=== PATIENT | male | born 1980 | race Caucasian/White ===

== ENCOUNTER 2022-08-27 07:37 | Outpatient (CLI) | payer BC, SELFPAY ==
--- OUTSIDE RECORDS SUMMARY | 2022-08-27 07:39 | XMS_ITS | Clinical Summary ---
:1980 Author Organization [email or web address] [facility] [place] [address] Care Team Providers Name Role Phone Amilcar Marquez MD Primary Care Provider Allergies No known active allergies Medications Medication Sig Dispensed Refills Start Date End Date Status ASPIRIN ORAL Take 81 mg by 0 Act domonique mouth once daily. valACYclovir (VALTREX) Take 1 tablet by 0 03/11/2020 Active 500 mg tablet mouth once daily. rizatriptan (MAXALT) Take 1 tablet by 0 03/11/2020 Active 10 mg tablet mouth 2 times daily if needed for Migraine. Give at minimum 2hrs apart. Max Dose: 30mg per 24hrs. EMGALITY PEN 120 mg/mL every 4 weeks. 0 02/29/2020 Active pnij amitriptyline (ELAVIL) Take 75 mg by 0 02/17/2021 Active 75 mg tablet mouth at bedtime. amoxicillin (AMOXIL) Take 4 Capsules 4 Capsule 3 04/04/2021 Active 500 mg (2,000 mg) by capsuleIndications: mouth one time H/O mitral valve if needed for repair Other (Specify) for up to 1 dose. carvediloL (Coreg) Take 1 Tablet 180 tablet. 0 06/07/2022 Active 3.125 mg (3.125 mg) by tabletIndications: mouth in the Mild left ventricular morning and 1 systolic dysfunction Tablet (3.125 mg) in the evening. Take with meals. 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 H/O mitral valve repair 08/14/2012 Encounters Date Type Specialty Care Team Description 06/06/2022 Refill Nils Tyler, Ref ill Request (Carvedilol 3.125mg tablets ) from Last 3 Months Social History Tobacco Use Types Packs/Day Years Used Date Never Smoker Smokeless Tobacco: Never Used Alcohol Use Standard Drinks/Week Comments Not Currently 0 (1 standard drink = 0.6 oz pure alcoho l) Sex Assigned at Date Recorded Not on file Obstetrics History Last Filed Vital Signs Vital Sign Reading Time Taken Comments Blood Pressure 112/74 04/04/2021 1:54 PM CDT Pulse 84 04/04/2021 1:54 PM CDT Temperature - - Respiratory Rate - - Oxygen Saturation 95% 04/04/2021 1:54 PM CDT Inhaled Oxygen Concentration - - Weight 98.5 kg (217 lb 3.2 oz) 04/04/2021 1:54 PM CDT Height 182.9 cm (6') 04/04/2021 1:54 PM CDT Body Mass Index 29.46 04/04/2021 1:54 PM CDT Plan of Treatment Health Maintenance Due Date Last Done Comments COVID-19 vaccine series (#1) 02/25/1980 Tdap 1990 Depression screening for age 12+ 1991 Hepatitis C screening for age 18-79 1997 Tetanus booster 1999 Lipids for age 35-44 2014 BMI (ht and wt on same day) for age 18+ 04/04/2022 04/04/20 21 Influenza for age 9-49 08/02/2022 Results Not on filefrom Last 3 Months Insurance Payer Benefit Plan / Subscriber ID Effective Dates Phone Addre ss Type Group BLUE [employer]OSS BLUE CR[employer] OF [id number] 2016-Present [address] [place] [address] BL[employer]OSS BL[employer] OF [id number] 2016-Present [address] [place] [address] Care Teams Md Allergy Immunology Relationship Specialty Start Date End Date Amilcar Marquez MD PCP - General Family Practice 05/16/171999 [place] [phone]
[2022-08-27 09:51] LABS: Albumin* 4.5 g/dL (3.3-5.0)
[2022-08-27 09:52] LABS: Chloride* 103 mmol/L (96-114); Potassium* 4.3 mmol/L (3.6-5.1); Sodium* 138 mmol/L (135-149)
[2022-08-27 09:54] LABS: Alkaline Phosphatase* 71 U/L (40-150); Aspartate Amino Transferase* 33 U/L (12-35); Bilirubin Total* 0.7 mg/dL (0.1-1.5); Blood Urea Nitrogen* 18 mg/dL (5-24); Carbon Dioxide* 27 mmol/L (20-32); Cholesterol* 227 mg/dL (90-199); Creatinine* 1.3 mg/dL (0.5-1.5); Estimated Glomerular Filt Rate 70 ml/min
[2022-08-27 09:55] LABS: Alanine Aminotransferase* 31 U/L (4-50); Calcium* 9.3 mg/dL (8.4-10.6); Glucose* 106 mg/dL (60-115); HDL Cholesterol* 45 mg/dL (>=40); LDL Cholesterol Calculated 154 mg/dL (<100); Triglycerides* 141 mg/dL (40-149)
== END 2022-08-27 07:38 | disposition home or self-care (01) ==
PROVIDERS: PCP Family Medicine; Visit Provider Family Medicine
DX: Z00.00 Encounter for general adult medical examination without abnormal findings (principal); E78.5 Hyperlipidemia, unspecified
CPT/HCPCS: 80053; 80061

== ENCOUNTER 2023-09-27 07:32 | Outpatient (CLI) | payer BC, SELFPAY | END 2023-09-27 07:33 | disposition home or self-care (01) | LOC: NFLDREF 09-28 03:13 | PROVIDERS: PCP Family Medicine; Referring Provider Family Medicine; Visit Provider Family Medicine | DX: Z00.00 Encounter for general adult medical examination without abnormal findings (principal); E78.5 Hyperlipidemia, unspecified; G43.909 Migraine, unspecified, not intractable, without status migrainosus | CPT/HCPCS: 80053; 80061 ==

== ENCOUNTER 2024-10-23 07:30 | Outpatient (RCR) | payer BC, SELFPAY ==
--- NOTE | 2024-10-23 07:59 | PT.OPDNX ---
PT [facility] Daily Note PT [facility] Daily Note Start: 09/23/24 07:17 Freq: Status: Active Protocol: Document 10/23/24 07:21 HLA (Rec: 10/23/24 07:58 HLA [id number]) E-signed By Deborah Galvin, PT, DPT PT OP Daily Progress Note Visit Information Note Type Daily Note,Discharge Note Visit Number 5 Insurance Information Recert Due Date 12/21/24 Insurance Name [employer] Medical Diagnosis R knee patellofemoral pain syndrome Treating Diagnosis R knee pain, R knee weakness Referring MD Mejia Subjective Preferred Name Scot Subjective Doing well with ex, some still hard, but not painful. Walking distances needed around campus, 26 min, uneven surfaces ok now, no pain on incline/decline. Pain Comments Pain vastus medialis 1/10 with twist, no pain at rest, sleeping now. Takes Tylenol prn Date of Last Physician Visit 09/01/24 Precautions Weight Bearing Status Weight Bear as Tolerated Home Exercise Home Exercise Comments Access Code: [email or web address] URL: [email or web address] Date: 09/30/2024 Prepared by: Deborah Galvin Exercises - Supine Quadricep Sets - 2 x daily - 7 x weekly - 3 sets - 10 reps - 5 hold - Supine Heel Slide - 1 x daily - 7 x weekly - 3 sets - 10 reps - 5 hold - Small Range Straight Leg Raise - 2 x daily - 7 x weekly - 2-3 sets - 10 reps - 5 hold - Supine Short Arc Quad - 2 x daily - 7 x weekly - 3 sets - 10 reps - 5 hold - Hip Flexor Stretch at Edge of Bed - 2 x daily - 7 x weekly - 1 sets - 3 reps - 30- 60 hold -hooklying hip add stretch 30 sec x2 - Clamshell - 2 x daily - 7 x weekly - 3 sets - 10 reps - 5 hold - Seated Long Arc Quad - 2 x daily - 7 x weekly - 3 sets - 10 reps - 5 hold - Seated March - 2 x daily - 7 x weekly - 3 sets - 10 reps - 5 hold - Supine Hamstring Stretch with Doorway - 1 x daily - 7 x weekly - 1 sets - 2 reps - 2 min hold - Wall Quarter Squat - 1 x daily - 7 x weekly - 1-2 sets - 10 reps - 5-10 hold - Sit to Stand with Arms Crossed - 1 x daily - 7 x weekly - 1 sets - 5-10 reps - Standing Hip Abduction AROM - 1 x daily - 7 x weekly - 3 sets - 10 reps - 3-5 hold - Standing Hip Abduction with Bent Knee - 1 x daily - 7 x weekly - 3 sets - 10 reps - 3- 5 hold Objective Other/Pertinent Objective Patellar compression negative Patellar grind negative Nichole's negative Patient Instructed in Risks/Benefits Yes Therapeutic Exercise Therapeutic Exercise Minutes (minutes) 40 Therapeutic Exercise: To Restore Kinesiotape replaced for R Functional Status knee vastus alignment recumbent bike level 3 x 12 min, instructed pt in advance of bike at home/office gym Access Code: Access Code: [email or web address] URL: [email or web address] Date: 09/30/2024 Prepared by: Deborah Galvin practiced and updated home program, pt performed all as below: reviewed ex, all ind now, pt to cont at home Exercises - Supine Quadricep Sets - 2 x daily - 7 x weekly - 3 sets - 10 reps - 5 hold-completed - Supine Heel Slide - 1 x daily - 7 x weekly - 3 sets - 10 reps - 5 hold-painfree, but if lifting leg pain R quad - Small Range Straight Leg Raise - 2 x daily - 7 x weekly - 2-3 sets - 10 reps - 5 hold-can lift 6 inches only - Supine Short Arc Quad - 2 x daily - 7 x weekly - 3 sets - 10 reps - 5 hold-painfree today - Hip Flexor Stretch at Edge of Bed - 2 x daily - 7 x weekly - 1 sets - 3 reps - 30- 60 hold able to get heel over bed now - Clamshell - 2 x daily - 7 x weekly - 3 sets - 10 reps - 5 hold-cues given to not roll posteriorly, mild c/o quad tightness - Seated Long Arc Quad - 2 x daily - 7 x weekly - 3 sets - 10 reps - 5 hold-vc to slow, hold, painfree today 30 total - Seated March - 2 x daily - 7 x weekly - 3 sets - 10 reps - 5 hold-able to lift and hold 3 sec now - Supine Hamstring Stretch with Doorway - 1 x daily - 7 x weekly - 1 sets - 2 reps - 2 min hold-still tight B HS, improving, no pain - Wall Quarter Squat - 1 x daily - 7 x weekly - 1-2 sets - 10 reps - 5-10 hold-able to hold 10 sec added 2nd set to be done with feet turned outward, start slow, increase if no pain - Sit to Stand with Arms Crossed - 1 x daily - 7 x weekly - 1 sets - 5-10 reps-10 reps, working on slowing descent. Pt reports 'tug' not pain R quad and vastus - Standing Hip Abduction AROM - 1 x daily - 7 x weekly - 3 sets - 10 reps - 3-5 hold- reminders to hold trunk in midline - Standing Hip Abduction with Bent Knee - 1 x daily - 7 x weekly - 3 sets - 10 reps - 3- 5 hold-more difficulty with balance, encouraged 1-2 UE support as needed Stationary bike level 4 x 5 min, no pain R knee Manual Therapy Techniques Manual Therapy Techniques kinesiotape to R knee last time PFPS Gait & Stair Training Gait & Stair Training Comments Gt level and uneven surfaces ind, no substitution or locking of knees. Denies tug or pain on reciprocal stairs. Neuromuscular Re-Ed Neuromuscular Reeducation Comments seated good static/dynamic standing good static/dynamic Treatment Minutes Timed Code Treatment Minutes 40 Total Treatment Time 40 Billing Units Therapeutic Exercise Units 3 Assessment/Impression Assessment/Impression 44 year old male male with onset of R patellofemoral pain was eval'd by PT 09/23/24. He had significant R knee pain, limited ROM, tightness of LE musculature and general weakness. Pt has performed ex for quad alignment, ROM, strengthening, closed chain and progressed to core and aerobic ex via walking and recumbent bike. Pt today with full, painfree R knee ROM, strength is WNL. Negative knee test signs. Encouraged increasing gt up to 26 min-met goal to be at 20 min painfree outdoors. Reviewed all ex, advancing fitness program at home. PT to dc today. Plan of Care Physical Therapy Goals Within 6-8 weeks 1. Pt will have 5/5 strength of LEs, pain free for ADLS, ambulation level surfaces and stairs. 2. Pt will be able to amb 20 min pain free for mobility in the community. 3. Pt will be independent in home ex program for strengthening, ROM and mobility to reduce fall risk 4. Pt will demonstrate 9 point increase in LEF scale ( functional gain). 5. Pt will perform stairs painfree, reciprocally. Daily Plan of Care Discharge Discharge Note Discharge Summary 44 year old male male with onset of R patellofemoral pain was eval'd by PT 09/23/24. He had significant R knee pain, limited ROM, tightness of LE musculature and general weakness. Pt has performed ex for quad alignment, ROM, strengthening, closed chain and progressed to core and aerobic ex via walking and recumbent bike. Pt today with full, painfree R knee ROM, strength is WNL. Negative knee test signs. Encouraged increasing gt up to 26 min-met goal to be at 20 min painfree outdoors. Reviewed all ex, advancing fitness program at home. PT to dc today. Date of First Visit for Therapy 09/23/24 Date of Last Visit for Therapy 10/23/24 Initial Primary Functional Limitations antalgic gt, locking knee, limited ROM, limited strength, stairs step to pattern Initial Pain Level severe R knee pain with flex, end range ext Pain Level at Discharge denies pain today Interventions Provided During Treatment Gait Training,Manual Therapy, Neuromuscular Re-Ed, Therapeutic Activities, Therapeutic Exercise Recommendations/Reason for Discharge Met All Therapy Goals Discharge Instructions cont with ex, advance amb and bike program
== END 2025-02-20 23:59 | disposition home or self-care (01) ==
PROVIDERS: PCP Family Medicine; Visit Provider Orthopaedic Surgery Sports Medicine
DX: M22.2X1 Patellofemoral disorders, right knee (principal); M25.561 Pain in right knee; R53.1 Weakness; Z51.89 Encounter for other specified aftercare
CPT/HCPCS: 97110; 97116; 97161

== ENCOUNTER 2024-11-30 07:30 | Outpatient (CLI) | payer BC, SELFPAY | END 2024-11-30 07:31 | disposition home or self-care (01) | LOC: NFLDREF 12-01 10:54 | PROVIDERS: PCP Family Medicine; Referring Provider Family Medicine; Visit Provider Family Medicine | DX: E78.5 Hyperlipidemia, unspecified (principal) | CPT/HCPCS: 80053; 80061 ==

== ENCOUNTER 2024-12-11 14:50 | Outpatient (CLI) | payer BC, SELFPAY ==
--- NOTE | 2024-12-11 15:30 | CRLHL7_ITS ---
For Patients: As a result of the Century Cures Act, medical imaging exams and procedure reports are released immediately into your electronic medical record. You may view this report before your referring provider. If you have questions, please contact your health care provider. CLINICAL INDICATION: Right knee pain. COMPARISON STUDIES: Radiographs 08/27/2024. TECHNICAL: Noncontrast MRI of the right knee. 1.5 jr MRI scanner. Axial, sagittal and coronal T1, PD, PD FS, stir and T2 FS images. FINDINGS: MEDIAL COMPARTMENT: Medial Meniscus: Intact. Articular Cartilage: Maintained. LATERAL COMPARTMENT: Lateral Meniscus: Intact. Articular Cartilage: Maintained. 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 The trochlear cartilage is maintained. LIGAMENTS: Anterior Cruciate Ligament: Intact. Posterior Cruciate Ligament: Intact. MEDIAL COLLATERAL LIGAMENT AND POSTEROMEDIAL CORNER COMPLEX: Medial Collateral Ligament: Mild chronic thickening of the proximal MCL. No acute MCL injury. Medial Head of the Gastrocnemius and Semimembranosus Tendons: Normal. LATERAL COLLATERAL LIGAMENT COMPLEX AND POSTEROLATERAL CORNER COMPLEX: Fibular Collateral Ligament: Normal. Distal Biceps Femoris Tendon Complex: Normal. Iliotibial Band: Normal. Popliteus Tendon: Normal. Posterolateral Corner Capsule: Normal. EXTENSOR MECHANISM: Distal Quadriceps Tendon: Normal. Patellar Tendon: Normal. Medial Patellar Retinaculum and Medial Patellofemoral Ligament: Normal. Lateral Patellar Retinaculum: Normal. Normal patellar alignment. Mild patella john. Normal trochlear depth. Normal lateral trochlear inclination. JOINT SPACE AND CAPSULE: Quantity of joint fluid within normal limits. No joint bodies. BONES AND SOFT TISSUES: No fracture, marrow edema or marrow replacement process. No significant popliteal cyst.No soft tissue mass. IMPRESSION: 1. 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 2. Mild patella john. 3. Chronic thickening of the proximal MCL suggesting sequelae of remote MCL sprain. 4. No meniscal tear. Dictated by Den Alex MD @ 12/14/2024 8:14:33 AM (Electronically Signed)
== END 2024-12-11 14:51 | disposition home or self-care (01) ==
LOC: MRI 14:51
PROVIDERS: PCP Family Medicine; Visit Provider Family Medicine
DX: M25.561 Pain in right knee (principal); M94.261 Chondromalacia, right knee; S83.411A Sprain of medial collateral ligament of right knee, initial encounter
CPT/HCPCS: 73721

== ENCOUNTER 2025-01-25 13:23 | Outpatient (CLI) | payer BC, SELFPAY | END 2025-01-25 13:24 | disposition home or self-care (01) | LOC: MRI 13:24 | PROVIDERS: PCP Family Medicine; Visit Provider Physician Assistant | DX: M25.551 Pain in right hip (principal); M16.11 Unilateral primary osteoarthritis, right hip; S73.191A Other sprain of right hip, initial encounter; M25.451 Effusion, right hip | CPT/HCPCS: 73721 ==

== ENCOUNTER 2025-03-22 06:21 | Day surgery (SDC) | payer BC, SELFPAY ==
[2025-03-22] VITALS (20 sets, daily range): BP systolic 97–135; BP diastolic 62–96; PULSE 60–84; RESP 12–18; TEMP 36.1–37.1; O2SAT 92–99; BMI 30.4
[2025-03-22] MEDS: LACTATED RINGERS 1000 ML 1,000 ML 100 ML IV (06:40)
[2025-03-22] MEDS: OXYCODONE (CR) 10 MG TAB.ER.12H PO (06:45)
[2025-03-22] MEDS: ACETAMINOPHEN 500 MG TABLET 1000 MG PO (06:45)
[2025-03-22] MEDS: SODIUM CHLORIDE 0.9 % (FLUSH) 10 ML SYRINGE IVF (06:50)
[2025-03-22] MEDS: fentaNYL 100 MCG/2 ML inj IVP (07:19)
[2025-03-22] MEDS: MIDAZOLAM HCL 1 MG/ML inj IVP (07:19)
--- NOTE | 2025-03-22 07:22 | SUR.PREOP ---
TIME?OUT:?0718 PT/RN/MDA?VERIFICATION?OF?SURGICAL?SITE,?PROCEDURE,?AND?CONSENT OBTAINED?PRIOR?TO?INVASIVE?PROCEDURE.
--- NOTE | 2025-03-22 07:45 | CRLHL7_ITS ---
For Patients: As a result of the Cures Act, medical imaging exams and procedure reports are released immediately into your electronic medical record. You may view this report before your referring provider. If you have questions, please contact your health care provider. Indication: Hip replacement surgery Technique: AP hip fluoroscopic image. Fluoroscopy time 56.9 seconds. Findings/Impression: Hardware from a right total hip arthroplasty is in satisfactory position. Dictated by Reginald Longoria MD @ 03/22/2025 1:48:50 PM (Electronically Signed)
--- NOTE | 2025-03-22 07:50 | W.PM.H&PU ---
History & Physical Update History & Physical Update H&P Reviewed and patient assessed: No changes noted
[2025-03-22] MEDS: CEFAZOLIN 2 GM in 0.9 % SODIUM CHLORIDE Mini-bag 100 ML IVPB (07:55)
[2025-03-22] MEDS: TRANEXAMIC ACID 100 MG/ML INJ 1000 MG IV (07:56)
--- NOTE | 2025-03-22 09:40 | P.ORPRC_ITS ---
Procedure Note Date of procedure: 03/22/25 Procedure: PREOPERATIVE DIAGNOSIS: 1. Right hip osteoarthritis, severe, primary POSTOPERATIVE DIAGNOSIS: 1. Right hip osteoarthritis, severe, primary PROCEDURE: 1. Right total hip arthroplasty-anterior approach 2. 14408 - intraoperative fluoroscopy up to 1 hour. SURGEON: Franklyn Mejia MD. TRAVELING BUYER: Prateek Perez PA-C; STACY Savage; Celestina Wellington (student) - Of note, a skilled [employer] assistant manager was critical for this case to aid in patient positioning, tissue retraction, limb manipulation/positioning, and closure. ANESTHESIA: General endotracheal anesthetic EBL: IMPLANTS: DePuy J&J uncemented total hip [place] cup size 58, hole eliminator, +4 neutral liner Actis stem, high offset, size 8 +5 mm ceramic 36 mm head COMPLICATIONS: None evident INDICATIONS: The patient is a pleasant 44-year-old male who has experienced severe right hip pain and difficulty bearing weight. 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 Given the deformity, the dysfunction, and the pain, as well as the failure of nonoperative management, recommendation was made for surgery. FINDINGS: Significant cartilage delamination consistent with avascular necrosis. Moderate effusion upon entering the joint. Generalized synovitis throughout the hip. DESCRIPTION OF PROCEDURE: Following a thorough discussion of risks, benefits, and alternatives consent was obtained and the right hip was marked. The patient was brought to the operating room and placed supine on the operating table. Induction of anesthesia was undertaken. 2 g IV Ancef and 1 g tranexamic acid was administered within 1 hr of incision preoperatively. Proper time-out was performed identifying proper patient, site, procedure. The operative extremity was prepped and draped in the appropriate sterile fashion using ChloraPrep after the patient was positioned on the [place] table with head in neutral alignment and all bony prominences well padded. C-arm fluoroscopic imaging was utilized to confirm proper pelvis rotation and position, and to get true AP films of both the contralateral left, and the affected right hip. This is for comparison. A longitudinal incision was made starting approximately 1 cm distal to the ASIS, and 3-4 cm lateral. The incision was extended distally aiming toward the lateral border the patella. Sharp incision through skin and bovie cautery through the subcutaneous tissue allowed identification of the TFL fascia. This was sharply divided, and the fascia bluntly released from the muscle fibers as we dissected medial. Upon coming to the medial border, we were able to retract the TFL laterally, and penetrated the deeper fascia and identify the crossing circumflex vessels. These were ligated/cauterized. The rectus was elevated from the capsule, and retractors placed laterally and me dially along the femoral neck to help with visualization of the capsule. We then performed an inverted T capsulotomy. The capsule was tagged for later repair. Retractors were placed inside the capsule. The femoral neck was visualized after releasing medially down to the lesser trochanter, along the saddle laterally, and up onto the acetabulum. The femoral neck cut was made in line with our preoperative templating. The head was removed in a single piece, and sized. We turned our attention to acetabular preparation. Initially, the labrum was resected from around the perimeter, the pulvinar was excised, allowing us to visualize the false wall. We started the reaming with a 43 mm reamer. This was medialized down to the true wall. We then enlarged our reamers sequentially up to one size less than the selected cup size. We trialed at the same size and found it to have an excellent fit. The selected cup was then opened, inserted, and impacted in line with the goal of 40? of abduction, and 20-25? of anteversion. This was confirmed on C-arm fluoroscopic imaging to be in the appropriate/goal position. Once the cup was placed we placed a hole eliminator and a liner consistent with preop planning. Attention was turned to the femoral preparation. The limb was extended, externally rotated, and adducted. The posteromedial capsule was released, as retractors were placed allowing excellent access to the proximal femur. Initially a final cigar and box examiner was followed by canal finder followed by various broaches. We broached sequentially up to the size noted above, found it to have excellent rotational control, and trialing various heads and necks, revealed that appropriate neck offset, and the above noted head size provided the greatest stability, and hoahaoism of length, and offset. C-arm fluoroscopic imaging confirmed position of the stem, as well as leg lengths, which were compared with the pre procedure all fluoroscopic images. Trial implants were removed, the real femoral stem inserted, as was the appropriate head. After reducing, the leg was placed through range of motion and stability was confirmed anterior, posterior, and lateral. A 3 min Betadine soak was then performed, and thorough irrigation with normal saline followed. Closure of the capsule was performed with #1 PDS. Bleeding was confirmed to be controlled at this stage, and the TFL fascia was closed with #0 strata fix. Subcutaneous, and subcuticular closure was performed with 2-0 Vicryl and 4-0 Monocryl, respectively. Dressings were applied, and the patient was awoken from anesthesia and transferred the PACU in stable condition. A skilled [employer] assistant manager was critical for this case to aid in patient positioning, tissue retraction, acetabular and proximal femoral exposure, limb manipulation/positioning, dislocation/relocation, patient safety, and closure. PLAN: 1. Weight bear as tolerated operative extremity. 2. 23 hr perioperative antibiotics. 3. Ice. 4. PT/OT consults for ambulation assistance/mobility education. 5. Social work consult for discharge planning. 6. DVT prophylaxis with at SCDs and Xarelto x5 days followed by aspirin for a total of 1 month..
--- NOTE | 2025-03-22 10:09 | CRLHL7_ITS ---
For Patients: As a result of the Cures Act, medical imaging exams and procedure reports are released immediately into your electronic medical record. You may view this report before your referring provider. If you have questions, please contact your health care provider. Indication: Postop Technique: AP hip centered pelvis and lateral view right hip Findings/Impression: Hardware from a right total hip arthroplasty is in satisfactory position. Bone alignment is normal. No sign of acute fracture. Postop changes are within normal limits. Dictated by Reginald Longoria MD @ 03/22/2025 1:45:11 PM (Electronically Signed)
--- NOTE | 2025-03-22 10:13 | P.ANES_ITS ---
Anesthesia Charges Start Date/Time Anesthesia Start Date: 03/22/25 Anesthesia Start Time: 07:39 Stop Date/Time Anesthesia Stop Date: 03/22/25 Anesthesia Stop Time: 10:13 Coding CPT Codes CPT Codes: ANESTH HIP ARTHROPLASTY - 82713 ([id number]) P3 - PATIENT W/SEVERE SYS DISEASE, QK - SUPERVISOR PIG MACHINE 2-4 CNCRNT ANES PROC, QX - TRIM MECHANIC SVC W/ MD MED DIRECTION
--- NOTE | 2025-03-22 10:13 | W.ANESCHARGE ---
Anesthesia Charges Start Date/Time Anesthesia Start Date: 03/22/25 Anesthesia Start Time: 07:39 Stop Date/Time Anesthesia Stop Date: 03/22/25 Anesthesia Stop Time: 10:13 Coding CPT Codes CPT Codes: ANESTH HIP ARTHROPLASTY - 32135 ([id number]) P3 - PATIENT W/SEVERE SYS DISEASE, QK - CEREAL SUPERVISOR 2-4 CNCRNT ANES PROC, QX - JUVENILE COURT LIAISON SVC W/ MD MED DIRECTION
--- NOTE | 2025-03-22 10:45 | P.ANES_ITS ---
Anesthesia Charges Start Date/Time Anesthesia Start Date: 03/22/25 Anesthesia Start Time: 07:39 Stop Date/Time Anesthesia Stop Date: 03/22/25 Anesthesia Stop Time: 10:13 Coding CPT Codes CPT Codes: ANESTH HIP ARTHROPLASTY - 84051 ([id number]) QX - INSTRUCTIONAL WRITER SVC W/ MD MED DIRECTION, QK - PHOSPHORIC ACID SUPERVISOR 2-4 CNCRNT ANES PROC, P3 - PATIENT W/SEVERE SYS DISEASE
--- NOTE | 2025-03-22 10:45 | W.ANESCHARGE ---
Anesthesia Charges Start Date/Time Anesthesia Start Date: 03/22/25 Anesthesia Start Time: 07:39 Stop Date/Time Anesthesia Stop Date: 03/22/25 Anesthesia Stop Time: 10:13 Coding CPT Codes CPT Codes: ANESTH HIP ARTHROPLASTY - 12919 ([id number]) QX - FOOT PIECE ASSEMBLER SVC W/ MD MED DIRECTION, QK - SUPERVISOR INSPECTING 2-4 CNCRNT ANES PROC, P3 - PATIENT W/SEVERE SYS DISEASE
--- NOTE | 2025-03-22 10:45 | W.PM.NB ---
Nerve Block Nerve Block Time Seen by Provider: 07:20 Date Seen: 03/22/25 Type of block requested by surgeon for post-operative analgesia: JAKE/LFCN Side: right Time out performed: Yes Verification of patient name: Yes Verification of date of : Yes Site marking: site marked Name of person performing procedure: Hu Continuous monitoring Was continuous monitoring of O2 sat, B/P, lunchroom monitor, recorded every 15 minutes?: Yes Procedure Checklist: sterile prep, needles and gloves Ultrasound guided. Images saved: Yes Medications given in 5ml increments after negative aspiration: Ropivicaine %: 0.5 mL: 30 Needle gauge: 20 Precedex (mcg): 25 Patient tolerated procedure well: Yes Additional comments: Needle noted below psoas tendon needle noted adjacent to LFCN Block Charges Block Charge (with Pro Fee): Other Periph Nerve Block Use of Ultrasound Machine for Block: Yes- US Guidance/pain block
[2025-03-22] MEDS: OXYCODONE 5 MG TABLET PO (12:15)
--- NOTE | 2025-03-22 12:49 | SUR.PHASEII ---
Patient tolerating food and water. Patient transferred to chair with standby assist, no complaints of dizziness or nausea.
--- NOTE | 2025-03-22 13:06 | SUR.PHASEII ---
Patient ambulated to bathroom with walker with standby assist. tolerated well, no dizziness or nausea. Spoke with surgeon regarding patients use of Maxalt for migraines if needed. Okay to take per Dr. Mejia if needed.
--- NOTE | 2025-03-22 13:11 | SUR.PHASEII ---
OT here for patient at 1308.
[2025-03-22] MEDS: METOCLOPRAMIDE HCL 5 MG/ML INJ 10 MG IVP (13:40)
== END 2025-03-22 14:50 | disposition home or self-care (01) ==
LOC: OR 06:22
PROVIDERS: PCP Family Medicine; Visit Provider Orthopaedic Surgery Sports Medicine
PROC: (CPT 27130; principal; 2025-03-22 07:45)
DX: M16.11 Unilateral primary osteoarthritis, right hip (principal); G89.18 Other acute postprocedural pain; I10 Essential (primary) hypertension; E78.5 Hyperlipidemia, unspecified; F41.9 Anxiety disorder, unspecified; F32.9 Major depressive disorder, single episode, unspecified
CPT/HCPCS: 27130; 01214; 36415; 64450; 73501; 76000; 76942; 86850; 86900; 86901; 97110; 97116; 97161; 97165; 97535; A9270; C1776; J0330; J0690; J1100; J2250; J2405; J2704; J2710; J2765; J2795; J3010; J3475; J3490; J7120

== ENCOUNTER 2025-04-21 13:45 | Outpatient (RCR) | payer BC, SELFPAY | END 2025-04-21 14:42 | disposition home or self-care (01) | PROVIDERS: PCP Family Medicine; Visit Provider Orthopaedic Surgery Sports Medicine | DX: Z47.1 Aftercare following joint replacement surgery (principal); M87.851 Other osteonecrosis, right femur; Z96.641 Presence of right artificial hip joint; Z51.89 Encounter for other specified aftercare | CPT/HCPCS: 97110; 97116; 97140; 97161 ==

== ENCOUNTER 2025-09-28 10:54 | Outpatient (CLI) | payer BC, SELFPAY ==
--- NOTE | 2025-09-28 12:21 | P.ANES_ITS ---
Anesthesia Charges Start Date/Time Anesthesia Start Date: 09/28/25 Anesthesia Start Time: 11:50 Stop Date/Time Anesthesia Stop Date: 09/28/25 Anesthesia Stop Time: 12:15 Coding CPT Codes CPT Codes: ANES LWR INTST NDSC NOS - 53207 ([id number]) P3 - PATIENT W/SEVERE SYS DISEASE, QK - MANAGER SUPPLY 2-4 CNCRNT ANES PROC, QX - CONCESSION CASHIER SVC W/ MD MED DIRECTION
--- NOTE | 2025-09-28 12:21 | W.ANESCHARGE ---
Anesthesia Charges Start Date/Time Anesthesia Start Date: 09/28/25 Anesthesia Start Time: 11:50 Stop Date/Time Anesthesia Stop Date: 09/28/25 Anesthesia Stop Time: 12:15 Coding CPT Codes CPT Codes: ANES LWR INTST NDSC NOS - 30282 ([id number]) P3 - PATIENT W/SEVERE SYS DISEASE, QK - LAND MANAGEMENT SUPERVISOR 2-4 CNCRNT ANES PROC, QX - SOFTWARE QUALITY ASSURANCE SPECIALIST SVC W/ MD MED DIRECTION
--- NOTE | 2025-09-28 13:17 | P.ANES_ITS ---
Anesthesia Charges Start Date/Time Anesthesia Start Date: 09/28/25 Anesthesia Start Time: 11:50 Stop Date/Time Anesthesia Stop Date: 09/28/25 Anesthesia Stop Time: 12:15 Coding CPT Codes CPT Codes: ANES LWR INTST NDSC NOS - 58209 ([id number]) QK - WELL SERVICE FLOORPERSON 2-4 CNCRNT ANES PROC, QX - CONSUMER LOAN OFFICER SVC W/ MED DIRECTION, P3 - PATIENT W/SEVERE SYS DISEASE
--- NOTE | 2025-09-28 13:17 | W.ANESCHARGE ---
Anesthesia Charges Start Date/Time Anesthesia Start Date: 09/28/25 Anesthesia Start Time: 11:50 Stop Date/Time Anesthesia Stop Date: 09/28/25 Anesthesia Stop Time: 12:15 Coding CPT Codes CPT Codes: ANES LWR INTST NDSC NOS - 96462 ([id number]) QK - SHUTTLELESS LOOM WEAVER 2-4 CNCRNT ANES PROC, QX - FLOWER BUNCHER OR PICKER SVC W/ MED DIRECTION, P3 - PATIENT W/SEVERE SYS DISEASE
== END 2025-09-28 10:55 | disposition home or self-care (01) ==
LOC: OP CLINIC 10:54
PROVIDERS: PCP Family Medicine; Visit Provider Surgery
DX: Z12.11 Encounter for screening for malignant neoplasm of colon (principal); K63.5 Polyp of colon; K62.1 Rectal polyp; K64.8 Other hemorrhoids
CPT/HCPCS: 00811; 00812; 45385; 88305; J2704

== ENCOUNTER 2025-11-12 12:37 | Emergency (ER) | payer BC, SELFPAY ==
[2025-11-12 12:47] VITALS: BP 132/88; PULSE 93; RESP 16; TEMP 36.5; O2SAT 100
--- NOTE | 2025-11-12 16:37 | ED.BACK ---
HPI - Back Pain/Injury General Date Seen: 11/12/25 Chief Complaint: Back Injury/Pain Stated Complaint: Lower back pain Time Seen by Provider: 11/12/25 16:23 Source: patient, RN notes reviewed and old records reviewed Mode of arrival: ambulatory Limitations: no limitations History of Present Illness HPI Narrative: Patient is a 45-year-old gentleman who presents here with back pain, he reached for something in the shower and felt a pop in his back, intense back pain the pain is only in his back, there is no radiation to his legs, associated with this he ended up going to urgent care and they did give him a shot of what I presume was Toradol. This did not really help the discomfort and he did take ibuprofen earlier. He presents here with spasm, and pain and some weakness secondary to that he denies any weakness into his legs, any bowel or bladder symptoms associated with this, he has no fevers chills or sweats personal history of malignancy, or other concerns. Past medical history of Right-sided hip replacement, no history of previous back problems, history of migraine headaches, and anxiety. also has a history of mitral valve issues, with a repair in the past, No history of smoking, no history hypertension,no history of aneurysmal disease, no history of hematuria kidney stones, He possibly had some back pain earlier in the week, but not nearly this bad. MD elicited complaint: back pain Onset (ago): hour(s) Timing: constant Severity: severe Similar Symptoms Previously: No Location: lumbar spine Radiation: none Exacerbating factors: none Relieving factors: none Context: turning/twisting Associated symptoms: difficulty walking Treatments prior to arrival: NSAIDS Work related injury: No Related Data Home Medications ?Medication ?Instructions ?Recorded ?Confirmed carvedilol 3.125 mg tablet 3.125 mg PO BID 06/15/22 11/12/25 rizatriptan 10 mg tablet (Maxalt) See Rx Instructions PO .COMPLEX 06/15/22 11/12/25 aspirin 81 mg tablet,delayed 81 mg PO DAILY 08/30/22 11/12/25 release hfplnbl-zbrtsklobxeke-powrdvub 250 2 tab PO Q6H PRN 08/30/22 11/12/25 mg-250 mg-65 mg tablet galcanezumab-gnlm 120 mg/mL 120 mg subcut .[id number] 10/03/23 11/12/25 subcutaneous pen injector (Emgality Pen) Previous Rx's ?Medication ?Instructions ?Recorded amitriptyline 50 mg tablet 50 mg PO QDAY #90 tabs 12/03/24 omeprazole 40 mg capsule,delayed 40 mg PO QDAY #90 caps 12/03/24 release tadalafil 20 mg tablet 20 mg PO QDAY PRN sexual activity 12/03/24 #60 tabs valacyclovir 500 mg tablet 500 mg PO QDAY #90 tabs 12/03/24 (Valtrex) methylprednisolone 4 mg tablets in See Rx Instructions PO .COMPLEX 11/12/25 a dose pack (Medrol (Hakeem)) #21 ea Allergies Allergy/AdvReac Type Severity Reaction Status Date / Time No Known Allergies Allergy Verified 11/12/25 12:52 Review of Systems Status of ROS: Reports: 10 or more systems reviewed and unremarkable except as noted in History and [facility] History of total right hip arthroplasty (03/22/25) ?Z96.641 - Presence of right artificial hip joint (ICD-10) History of hernia repair (~2017) ?Z98.890 - Other specified postprocedural states (ICD-10) ?Z87.19 - Personal history of other diseases of the digestive system (ICD-10) History of mitral valve repair (2010) ?Z98.890 - Other specified postprocedural states (ICD-10) Family History Mother Osteoarthritis Lung cancer Social History What is your current living situation?: I presently have a place to live Problems where you live: no known problems In the past 12 months, utilities in danger of being shut off: no In past 12 months, lack of transportation kept you from medical appts, meetings, work, or getting things needed for daily living: no In the past 12 mos, have been you worried that your food would run out before you had money to buy more?: never true In the past 12 mos, the food you bought just didn't last and you didn't have money to buy more?: never true Smoking Status: Never smoker Do you use any of these nicotine containing products: None How often do you have a drink containing alcohol: never How often do you have six or more drinks on one occasion: Never AUDIT-C Alcohol total score: 0 Non-prescribed substance use: denies use Caffeine: Yes How often does anyone, including family, friends and others, physically hurt you: never How often does anyone, including family, friends and others, insult or talk down to you: never How often does anyone, including family, friends and others, threaten you with harm: never How often does anyone, including family, friends and others, scream or curse at you: never Exam Narrative: Exam Narrative: patient is seen in room 2 he is in no apparent distress he is able to get up he has brought a cane from home that it used when he had his right-sided hip replacement. Is able to stand up, using the cane, but has really no ability to floor flex, no palpable pain on palpation percussion in localizes discomfort to his lower spine, through his jeans he has normal perianal sensation he tells me his SLR is are negative to 90? sitting, his ambulance dorsiflexors of his feet, plantar flexors, knee is extensors flexors and hip flexors are graded 5/5 power bilaterally. Sensory is normal over his entire lower legs bilaterally, and his reflexes are +2/4 his knees and ankles. Const: Vital Signs, click to edit/add: Vital Signs - 24 hr 11/12/25 12:47 11/12/25 17:00 Temperature 97.7 F Pulse Rate 91 Pulse Rate [Right Pulse Oximeter] 93 Respiratory Rate 16 16 Blood Pressure 139/101 H Blood Pressure [Ri ght Upper Arm] 132/88 Pulse Oximetry 100 95 Oxygen Delivery Me thod Room Air Room Air Course Reevaluation(s) Time of Reevaluation #1: 18:01 Reevaluation #1: I went back in to see the patient is now able to stand without a cane and move around, he was very grateful for his decreased pain. I discussed with him we will use a Medrol Dosepak, along with some Flexeril, he will hold off on the ibuprofen and also use Tylenol 1 g p.o. t.i.d. ice and a lumbar support. He can follow-up with his primary care physician next week, or see me in the spine clinic at the orthopedic office Vital Signs Vital signs: Initial Vital Signs Temperature 97.7 F 11/12/25 12:47 Temperature Source Temporal Artery Scan 11/12/25 12:47 Pulse Rate 93 11/12/25 12:47 Pulse Rhythm Regular 11/12/25 12:47 Pulse Strength 3+ Normal 11/12/25 12:47 Respiratory Rate 16 11/12/25 12:47 Blood Pressure 132/88 11/12/25 12:47 Blood Pressure Mean 102 11/12/25 12:47 Blood Pressure Position Sitting 11/12/25 12:47 Pulse Oximetry 100 11/12/25 12:47 Oxygen Delivery Method Room Air 11/12/25 12:47 Vital Signs Temperature 97.7 F 11/12/25 12:47 Pulse Rate 93 11/12/25 12:47 Respiratory Rate 16 11/12/25 12:47 Blood Pressure 132/88 11/12/25 12:47 Pulse Oximetry 100 11/12/25 12:47 Oxygen Delivery Method Room Air 11/12/25 12:47 Temperature 97.7 F 11/12/25 12:47 Pulse Rate 91 11/12/25 17:00 Respiratory Rate 16 11/12/25 17:00 Blood Pressure 139/101 H 11/12/25 17:00 Pulse Oximetry 95 11/12/25 17:00 Oxygen Delivery Method Room Air 11/12/25 17:00 Medications Administered Medications: Discontinued Medications Generic Name Dose Route Start Last Admin Trade Name Freq PRN Reason Stop Dose Admin Morphine Sulfate 10 mg 11/12/25 16:36 11/12/25 16:57 Morphine 10 Mg/Ml Inj IM 11/12/25 16:37 10 mg ONCE ONE Administration MDM - Back Pain/Injury MDM Narrative Medical decision making narrative: Life-threatening differential diagnosis considered include: Cauda equina an epidural abscess, other differential diagnosis considered includes sprain, contusion, nerve root entrapment, radiculopathy, muscle spasm, urolithiasis, lumbar fracture, pyelonephritis, appendicitis, biliary colic, as well as other etiologies. The patient denies saddle anesthesia bowel or bladder incontinence or lower extremity weakness, recent weight loss, or history of malignancy. I discussed with him that there would be really no indication for an x-ray here with no history of trauma or no history of any alarm type symptoms. This seems like a good older muscle spasm which can be very debilitating, he is going to try to get a driver's license reviewing officer and we really give him a shot of morphine here. The given talk about medications that he can use for the rest of the week. We also talked Warning signs, and when he should follow-up. Differential Diagnosis Differential diagnosis: Likely lumbar radiculopathy, sciatica, strain of lumbar region, renal colic, pyelonephritis, thoracic back pain, AAA and discitis Discharge Plan Discharge Clinical Impression: Strain of lumbar region Patient Disposition: Home w/ Parent or Adult Condition: Improved Instructions: Low Back Strain (ED), Back Pain (ED), Lumbar Brace (DC), Lower Back Exercises (ED), Core Strengthening Exercises (ED), Cold Compress or Soak (ED) Additional Instructions: Home rest, please use the medications that I gave you, I would not use ibuprofen with the Medrol. You may use muscle relaxant also, ice is very helpful, and a lumbar support. Suggest follow-up with your primary physician early this week, consideration of other options available to you also. Activity Level: Light activity Discharge Diet: Regular Prescriptions: New methylprednisolone [Medrol (Hakeem)] 4 mg tablets,dose pack See Rx Instructions .ROUTE .COMPLEX Qty: 21 0RF Rx Instructions: for 6 days No Action valacyclovir [Valtrex] 500 mg tablet 500 mg PO QDAY Qty: 90 3RF omeprazole 40 mg capsule,delayed release(DR/EC) 40 mg PO QDAY Qty: 90 3RF amitriptyline 50 mg tablet 50 mg PO QDAY Qty: 90 3RF tadalafil 20 mg tablet 20 mg PO QDAY PRN (Reason: sexual activity) Qty: 60 4RF Rx Instructions: admin approx. 30min before sexual activity; do not use more than 1 dose per 24hrs aspirin 81 mg tablet,delayed release (DR/EC) 81 mg PO DAILY zxkstig-adejponudkzec-zrfhusgl 250-250-65 mg tablet 2 tab PO Q6H PRN rizatriptan [Maxalt] 10 mg tablet See Rx Instructions PO .COMPLEX Rx Instructions: take 1 tab at onset of headache; if no relief may repeat 1 tab after at least 2 hrs; max = 3 tabs/24 hr PO carvedilol 3.125 mg tablet 3.125 mg PO BID Rx Instructions: must administer with a meal/food Emgality Pen 120 mg/mL pen injector 120 mg subcut .[id number] Follow Up/Referrals: Amilcar Marquez MD [Primary Care Provider, Family Practice] Stand Alone Forms: Message Bus Info Instructions
--- OUTSIDE RECORDS SUMMARY | 2025-11-12 16:58 | XMS_ITS | Clinical Summary ---
Author Organization [facility] Address [address] [place] [address] Care Team Providers Care Naval Architect Specialist Name Role Phone Elsewhere, Pcp Primary Care Provider Unavailabl e Source Comments Patient records contain information from all sites at [facility]. For routine questions regarding patient records, call [phone] during business hours, M-F 8:00 AM - 5:00 PM Central Time. Record requests for emergency care only can be directed to [phone] at any time.[facility] Allergies No known active allergies Medications MedicationSigDispense QuantityRefillsLast FilledStart DateEnd DateStatus amitriptyline (ELAVIL) 75 mg tablet Take 75 mg by mouth every evening.02/17/2021ctive carvediloL (COREG) 3.125 mg tablet Take 3.125 mg by mouth 2 (two) times a day.06/03/2023ctive valACYclovir (VALTREX) 500 mg tablet Take 1 tablet by mouth daily.03/11/2020Active omeprazole (PriLOSEC) [address] capsule Take 40 mg by mouth daily.12/31/2023ctive rizatriptan (MAXALT) 10 mg tablet Take 10 mg by mouth 2 (two) times a day as needed for migraine. Take 1 tablet by mouth 2 times daily if needed for Migraine. Give at minimum 2hrs apart. Max Dose: 30mg per 24hrs.03/11/2020Active Emgality Pen 120 mg/mL injection Inject 120 mg under the skin every 28 (twenty-eight) days.Active aspirin [address] tablet Take 81 mg by mouth daily.08/30/2022ctive dohuoqb-orvhwdzqkrozb-euoedcpz (EXCEDRIN MIGRAINE) 250-250-65 mg per tablet Take 2 tablets by mouth as needed (migraine).08/30/2022ctive MAGNESIUM ORAL Take 500 mg by mouth daily.10/03/2023ctive riboflavin, vitamin B2, 400 mg tablet Take 400 mg by mouth daily.10/03/2023ctive tadalafiL (CIALIS) 20 mg tablet Take 20 mg by mouth as needed.10/03/2023ctive Social History Tobacco UseTypesPacks/DayYears UsedDateSmoking Tobacco: NeverPassive Smoke Exposure: PastSmokeless Tobacco: Never Tobacco Cessation:Counseling Given: Not Answered Passive Exposure Comments:Childhood exposure.[facility] UtilitiesAnswerDate RecordedIn the past 12 months has the Aureli[employer], gas, oil, or water Embedded Chat threatened to shut off services in your home?No01/06/2024Hunger Vital SignAnswerDate Recorded Within the past 12 months, you worried that your food would run out before you got the money to buymore.Never true01/06/2024Within the past 12 months, the food you bought just didn't last and you didn't have money to get more.Never true 01/06/2024RAPARE - TransportationAnswerDate RecordedIn the past 12 months, has lack of transportation kept you from medical appointments or from getting medications?No01/06/2024In the past 12 months, has lack of transportation kept you from meetings, work, or from getting things needed for daily living?No 01/06/2024ostpartum DepressionAnswerDate RecordedPHQ-9 Total Score (max 27)7 01/07/2024Housing StabilityAnswerDate RecordedWhat is your living situation today?I have a steady place to live01/06/2024Sex and Gender InformationValueDate RecordedSex Assigned at EvfnfIvcg36/05/2024 10:20 AM CSTLegal ZhkRuoz55/07/2023 9:44 AM CSTGender FdlrtbqzAijc91/05/2024 10:20 AM CSTSexual OrientationStraight 01/06/2024 10:20 AM HOSPITAL RECEIVING CLERK Last Filed Vital Signs Vital SignReadingTime TakenCommentsBlood Dcymydaq898/9401/07/2024 9:43 AM HOSPITAL RECEIVING CLERK Ryzaf638001/07/2024 9:43 AM CSTTemperature--Respiratory Rate--Oxygen Saturation-- Inhaled Oxygen Concentration--Njxdhb425 kg (227 lb 11.8 oz)01/07/2024 9:43 AM AZFNqyfny993 cm (6' 1.23)01/07/2024 9:43 AM CSTBody Mass Index29.8601/07/2024 9:43 AM HOSPITAL RECEIVING CLERK Plan of Treatment Health MaintenanceDue DateLast DoneCommentsCT Fzmhyjmzrjqy1979Cologuard 1979 5286Wsflagyzilt1979Colorectal Cancer Klxlldcfp1979FIT 1979Fasting Glucose for Diabetes Imwexseyx1979HIV Screening 1979Hepatitis C Wtpytiboq1979Lipid (Cholesterol) Htwtlmepy1979 Hepatitis B Vaccines (1 of 3 - 19+ 3-dose series)1998Depression Screening (Annual PHQ-2)5COVID-19 Vaccine ( season)2025 09/04/2023, 09/12/2022, 10/18/2021, Additional history existsInfluenza Vaccine (#1)510/03/2023, 09/18/2022, 09/13/2021, Additional history exists DTaP,Tdap,and Td Vaccines (2 - Td or Tdap)IPV VaccinesAged OutNo longer eligible based on patient's age to complete this topicPneumococcal vaccine (0-49 years)Aged OutNo longer eligible based on patient's age to complete this topic Medical Devices ImplantedTypeAreaManufacturerDevice IdentifierShelf Expiration DateModel / Serial / LotCardiac OtherCardiac OtherMitral ValveDescription:Band implanted during mitral valve repair.Mesh Or Patch-Bilateral GroinMesh or PatchBilateral: GroinMesh Or PatchMesh or PatchUmbilical Insurance Care Teams Team MemberRelationshipSpecialtyStart DateEnd Date Elsewhere, Pcp PCP - GeneralInternal Medicine01/01/24
--- OUTSIDE RECORDS SUMMARY | 2025-11-12 16:58 | XMS_ITS | Clinical Summary ---
Author Organization [employer] [facility] [employer] [facility] Address [address] [place] [address] Care Team Providers Care Operating Room Aide Name Role Phone Amilcar Marquez MD Primary Care Provider [phone] Allergies No known active allergies Medications MedicationSigDispense QuantityRefillsLast FilledStart DateEnd DateStatus ASPIRIN ORAL Take 81 mg by mouth once daily.Active valACYclovir (VALTREX) 500 mg tablet Take 1 tablet by mouth once daily.Active rizatriptan (MAXALT) 10 mg tablet Take 1 tablet by mouth 2 times daily if needed for Migraine. Give at minimum 2hrs apart. Max Dose: 30mg per 24hrs.Active EMGALITY PEN 120 mg/mL pnij every 4 weeks.02/29/2020Active amitriptyline (ELAVIL) 75 mg tablet Take 75 mg by mouth at bedtime.02/17/2021ctive medication order composer Magnesium 500mg [id number] amoxicillin 500 mg capsule Indications:H/O mitral valve repairTake 4 capsules (2,000 mg) by mouth 30-60 minutes prior to dental cleanings/procedures. 8 Capsule 4Active carvediloL (COREG) 3.125 mg tablet Indications:Mild left ventricular systolic dysfunctionTake 1 Tablet (3.125 mg) by mouth two times daily with meals. 180 Tablet 5Active carvediloL (COREG) 3.125 mg tablet Indications:Mild left ventricular systolic dysfunctionTake 1 Tablet (3.125 mg) by mouth two times daily with meals. DUE FOR ECHOCARDIOGRAM AND FOLLOW UP VISIT TO RECEIVE REFILLS: [phone] 180 Tablet 5101/10/2025Discontinued Active Problems ProblemNoted DateDiagnosed DateHx of mitral valve ahdthuvj04/16/2017 Overview (05/17/2017): MV repaired at [facility] in [facility] in 2010 or 2011 Regional wall motion abnormality of heart05/14/2017H/O mitral valve repair 08/14/2012 Encounters DateTypeDepartmentCare QgecIewzuoqiqbr28/11/1747Tjjgcz03/09/2025Refill [facility] [address] [facility] [address] [place] [address] Nils Tyler MD Refill Request (Carvedilol)09/29/2025Lab Requisition [facility] [phone] Lianne White MD from Last 3 Months Social History Tobacco UseTypesPacks/DayYears UsedDateSmoking Tobacco: NeverSmokeless Tobacco: NeverAlcohol UseStandard Drinks/WeekCommentsNot Currently0 (1 standard drink = 0.6 oz pure alcohol)Social ConnectionsAnswerDate RecordedFrequency of Communication with Friends and FamilyNot on file07/17/2023Financial Resource StrainAnswerDate RecordedDifficulty of Paying Living ExpensesNot on file 2Difficulty of Paying Living ExpensesNot on file12/02/2021ex and Gender InformationValueDate RecordedSex Assigned at BirthNot on fileLegal Sex Male05/02/2017 8:09 AM CDTGender IdentityNot on fileSexual OrientationNot on file Last Filed Vital Signs Vital SignReadingTime TakenCommentsBlood Ltqcjqyr941/6208 2:12 PM CDT Ffyjq404907/17/2023 2:12 PM CDTTemperature--Respiratory Rate--Oxygen Rcldlbywxt74% 07/17/2023 2:12 PM CDTInhaled Oxygen Concentration--Fqogso332.7 kg (222 lb) 07/17/2023 2:12 PM ODTDzggkg301.9 cm (6')07/17/2023 2:12 PM CDTBody Mass Index 30.1108 2:12 PM CDT Plan of Treatment DateTypeDepartmentCare Team (Latest Contact Info)Kiejsmfidff31/16/2025 8:30 AM CSTAppointment [facility] [address] [place] [address] 11/16/2025 9:30 AM CSTOffice Visit [facility] [address] [facility] [address] [place] [phone] Nils Tyler MD [address] [facility] [address] [place] [address] Health MaintenanceDue DateLast DoneCommentsTetanus kokfbmk6108/27/1990Depression screening for age 12+1991HIV for age 15-Hepatitis C screening for age 18-Hepatitis B series for 19+ (1 of 3 - 19+ 3-dose series) 1998Pneumococcal series for age 6-49 (1 of 2 - PCV)1998BMI (ht and wt on same day) for age 18+/, 04/04/2021olonoscopy through age Lipids for age 45-OVID-19 vaccine series (2024- season)/11/2022, 10/18/2021, 03/24/2021, Additional history existsInfluenza Vaccine (#1)08/02/2025 Procedures Procedure NamePriorityDate/TimeAssociated DiagnosisCommentsLAB TRACKING EVENT Cogubrh2409/28/2025 11:58 AM CDTPATH TISSUE LBBGVpfuhdo61/28/2025 11:58 AM CDT from Last 3 Months Results * LAB TRACKING EVENT (09/28/2025 11:58 AM CDT)Specimen (Source)Anatomical Location / LateralityCollection Method / VolumeCollection TimeReceived Time Other (Other)Client Collect / Rbajvcz0609/28/2025 11:58 AM CDT1 7:20 AM CDT Narrative Authorizing ProviderResult TypeResult StatusKatjess White MDLAB BILL ONLY Final ResultPerforming OrganizationAddressCity/State/ZIP CodePhone Number [facility] [address] [place] [address], * PATH TISSUE EXAM (09/28/2025 11:58 AM CDT)ComponentValueRef RangeTest Method Analysis TimePerformed AtPathologist SignatureCase ReportPathology Report ?Case: [id number] ? Authorizing Provider: ??Lianne White MD ?Collected: ? 09/28/2025 1158 ? Ordering Location: ? [facility] ?Received: ?09/29/2025 1249 ? Pathologist: ? Bob Qiu MD ? Specimens: ?? A) - Cecal Polyp ? B) - Ascending Colon Polyp ? C) - Descending Colon Polyp ? D) - Rectal Polyp ? 10/01/2025 9:22 AM [facility] LABORATORYFinal Diagnosis A) COLON, CECUM, BIOPSY: 1. Normal colonic mucosa; a lymphoid aggregate is present (clinically, 1 polyp) 2. Negative for serrated change, dysplasia, and malignancy B) COLON, ASCENDING, BIOPSY: 1. Normal colonic mucosa; a lymphoid aggregate is present (clinically, 1 polyp) 2. Negative for serrated change, dysplasia, and malignancy C) COLON, DESCENDING, BIOPSY: 1. Normal colonic mucosa; a lymphoid aggregate is present (clinically, 1 polyp) 2. Negative for serrated change, dysplasia, and malignancy D) RECTUM, POLYPECTOMY: 1. Hyperplastic polyp 10/01/2025 9:22 AM [facility] at 0922 CDTCommentCase seen in consultation with Dr. Curry.10/01/2025 9:22 AM [facility] LABORATORYClinical InformationScreening colonoscopy.10/01/2025 9:22 AM [facility] Gross DescriptionA) Received in formalin are 3 posadas mucosal fragments ranging from 3 mm to 14 mm in greatest dimension. The largest fragment is sectioned. The specimen is entirely submitted in one cassette. It is labeled with the patient's name and designated cecum polyp. B) Received in formalin are 8 posadas mucosal fragments ranging from 2 mm to 3 mm in greatest dimension, which are entirely submitted in one cassette. It is labeled with the patient's name and designatedascending colon polyp. C) Received in formalin are 4 posadas mucosal fragments ranging from 4 mm to 13 mm in greatest dimension, which are entirely submitted in one cassette. It is labeled with the patient's name and designated descending colon polyp. D) Received in formalin is a posadas mucosal fragment measuring 12 mm in greatest dimension, which is entirely submitted in one cassette. It is labeled with the patient's name and designated rectum polyp. Corina Michael 09/29/2025 4:37 PM 10/01/2025 9:22 AM [facility] LABORATORYMicroscopic DescriptionThe final diagnosis is based on microscopic examination of appropriate sections of all specimens.10/01/2025 9:22 AM [facility] LABORATORYAdditional Information Interpreted at [facility] Central Laboratory - [address] [id number]/01/2025 9:22 AM [facility] LABORATORYSpecimen (Source)Anatomical Location / LateralityCollection Method / VolumeCollection TimeReceived TimeOther (Cecal Polyp)09/28/2025 11:58 AM CDT1 12:49 PM CDTSpecimen (specimen) (Ascending Colon Polyp) 09/28/2025 11:58 AM CDT1 12:49 PM CDTSpecimen (specimen) (Descending Colon Polyp)09/28/2025 11:58 AM CDT1 12:49 PM CDTSpecimen (specimen) (Rectal Polyp )09/28/2025 11:58 AM CDT1 12:49 PM CDT Narrative Authorizing ProviderResult TypeResult StatusLianne White MD PATHOLOGY/CYTOLOGYFinal ResultPerforming OrganizationAddressCity/State/ZIP Code Phone Number [facility] [address] [place] [address], from Last 3 Months Insurance Care Teams Team MemberRelationshipSpecialtyStart DateEnd Date Amilcar Marquez MD [address] [place] [phone] PCP - GeneralFamily Practice05/16/17
[2025-11-12 17:00] VITALS: BP 139/101; PULSE 91; RESP 16; O2SAT 95
== END 2025-11-12 18:10 | disposition home or self-care (01) ==
PROVIDERS: Emergency Provider Family Medicine; PCP Family Medicine
DX: S39.012A Strain of muscle, fascia and tendon of lower back, initial encounter (principal); X58.XXXA Exposure to other specified factors, initial encounter; Y93.E1 Activity, personal bathing and showering; Y92.9 Unspecified place or not applicable
CPT/HCPCS: 99283; 99284; J2270